=== PATIENT | male | born 1965 | race Caucasian/White ===

== ENCOUNTER 2016-07-10 09:57 | Emergency (ER) | payer OTHER ==
[2016-07-10 10:01] VITALS: RESP 16; TEMP 98.2
--- NOTE | 2016-07-10 10:46 | EDPHY ---
H & P Time Seen by Provider: 07/10/16 10:02 HPI/ROS: HPI Scalp laceration. 51-year-old male by private vehicle with his . This patient hit the right upper forehead on his car trunk edge as he was putting a bag in the trunk. He did not lose consciousness. He is not on any anticoagulation or antiplatelet agent. No headache. No vomiting. No neck pain. No numbness or weakness in his extremities. No other complaints. ROS: Constitutional: No fever, no chills. No weakness. Eyes: No discharge. No changes in vision. Respiratory: No cough. No shortness of breath. Cardiac: No chest pain, no palpitations. Gastrointestinal: No abdominal pain, no vomiting, no diarrhea. Musculoskeletal: No back pain. No neck pain. No extremity pain. Skin: No rashes. As above. Neurological: No headache. No focal weakness or altered sensation. Past medical history: Hyperlipidemia. He takes a statin for this. Primary care physician is Dr. Hutchins. Social history: No smoking. No alcohol. Here with his . Physical Exam: General Appearance: Alert, no distress. This patient is responding to questions appropriately and in full sentences. This patient appears well- hydrated and well-nourished. Head: Normocephalic atraumatic except for a jagged, 2.5 cm laceration mid right upper forehead. This is non gaping. He is bald. Face: Facial bones are stable on palpation. Eyes: Pupils equal and round and reactive to light, no pallor or injection. No lid erythema or edema. ENT, Mouth: Mucous membranes moist. Dentition is intact. No malocclusion of the jaw. No tongue lacerations or abrasions. Pharynx is clear. The bilateral nasal canals are clear. No septal hematoma. Neurological: Motor sensory function is intact. Cranial nerves are normal. Cerebellar function intact. Skin: Warm and dry, no rashes. As above. Musculoskeletal: Neck is supple and nontender. The trachea is midline. No midline cervical, thoracic, lumbar or sacral tenderness on palpation. No flank tenderness on palpation. Extremities are symmetrical, full range of motion. All joints in the bilateral upper and bilateral lower extremities range without pain or impingement. Psychiatric: No agitation. No depression. Database: EKG: Imaging: Procedures: Procedure: Laceration repair. Verbal consent was obtained from the patient. The 2.5 cm laceration on the right upper forehead was anesthetized in the usual fashion. The wound was irrigated, draped and explored to its base with a gloved finger. There were no deep structures involved. No foreign body was identified. The wound was repaired with 8, 5.0 Ethilon sutures placed in interrupted fashion. The wound repair was tolerated well and there were no complications. The procedure was performed by myself. Emergency department course: After suture repair as noted above wound care was discussed with the patient. Head injury precautions reviewed. He feels comfortable going home. His neurologic status has been normal while in the emergency department he has been asymptomatic. Follow-up and return to emergency department precautions were reviewed with him. All of his questions were answered. He was discharged in good condition. Differential Diagnosis: The differential diagnosis on this patient includes but is not limited to forehead laceration. Traumatic brain injury, skull fracture, cervical spine injury, other significant traumatic injury unlikely. This represents a partial list of diagnoses considered. These considerations are based on history, physical exam, past history, reassessment and diagnostic testing. Smoking Status: Never smoked Constitutional: Initial Vital Signs Temperature (C) 36.8 C 07/10/16 09:57 Heart Rate 68 07/10/16 09:57 Respiratory Rate 16 07/10/16 09:57 Blood Pressure 141/93 H 07/10/16 09:57 O2 Sat (%) 97 07/10/16 09:57 O2 Delivery Mode Room Air Allergies/Adverse Reactions: No Known Allergies Allergy (Unverified 07/10/16 09:59) Home Medications: Medication Instructions Recorded Lipitor 07/10/16 MDM/Departure - Depart Disposition: Home, Routine, Self-Care Clinical Impression: Laceration of forehead, Laceration Condition: Good Instructions: Laceration (ED), Care For Your Stitches (ED) Additional Instructions: Read and follow provided instructions. Sutures are to be removed in 7-10 days. Follow up with your primary care physician in 1-2 days as needed for re- evaluation. Return to the emergency department for worsening headache, vomiting, confusion, signs of wound infection or other serious concerns. Referrals: Patrick Hutchins [Primary Care Provider] - As per Instructions
[2016-07-10 11:03] VITALS: BP 124/77; PULSE 62; O2SAT 95
== END 2016-07-24 09:26 | disposition home or self-care (01) ==
PROC: 0HQ1XZZ Repair Face Skin, External Approach (ICD-10-PCS; principal; 2016-07-10)
DX: S01.81XA Laceration without foreign body of other part of head, initial encounter (principal); W22.8XXA Striking against or struck by other objects, initial encounter; Y93.89 Activity, other specified

== ENCOUNTER → 2018-11-04 | Outpatient (CLI) | payer OTHER | LOC: FIMAGING 08:29 | PROVIDERS: ATTEND Family Medicine | DX: M43.12 Spondylolisthesis, cervical region (principal); M50.31 Other cervical disc degeneration, high cervical region; M89.38 Hypertrophy of bone, other site; M47.892 Other spondylosis, cervical region ==